=== PATIENT | female | born 1985 | race Caucasian/White ===

== ENCOUNTER 2019-11-02 16:33 | Emergency (ER) | payer OTHER ==
[2019-11-02] MEDS ORDERED: cefTRIAXone 1 GM Vial IM ONE (19:14)
[2019-11-02] MEDS ORDERED: Ondansetron 4 MG Tab.DIS PO ONE (19:16)
--- NOTE | 2019-11-02 19:16 | EDM.PDOC ---
ED HPI GENERAL MEDICAL PROBLEM - General Chief Complaint: Flank Pain Stated Complaint: FLANK PAIN Time Seen by Provider: 11/02/19 19:05 Source of Information: Reports: Patient, RN History Limitations: Reports: Other (no old records) - History of Present Illness INITIAL COMMENTS - FREE TEXT/NARRATIVE: 34 yo female here with flank pain and mild nausea after a couple days of mild dysuria. No fever. PHx of UTI's. Visiting for the week from [facility]. Onset: Gradual Duration: Day(s):, Getting Worse Location: Reports: Back (flank bilat.), Pelvis (bladder) Quality: Reports: Ache (flank), Burning (bladder) Severity: Mild Improves with: Reports: None Worsens with: Reports: Other (time) Context: Reports: Other (See HPI) Associated Symptoms: Reports: Nausea/Vomiting (no vomiting). Denies: Fever/Chills Treatments [employer]: Reports: Other (see below) (none) Bilateral Flank Pain Score (Numeric/FACES): 6 - Related Data Allergies Allergy/AdvReac Type Severity Reaction Status Date / Time No Known Allergies Allergy Verified 11/02/19 18:41 Home Meds: Home Meds Nitrofurantoin Monohyd/M-Cryst [Macrobid 100 mg Capsule] 100 mg PO Q12H #14 capsule 11/02/19 [Rx] Past Medical History - Past Surgical History HEENT Surgical History: Reports: Other (See Below) Other HEENT Surgeries/Procedures: deviated septum surgery Social & Family History - Tobacco Use Smoking Status *Q: Never Smoker - Recreational Drug Use Recreational Drug Use: No ED ROS GENERAL - Review of Systems Review Of Systems: See Below Constitutional: Reports: Malaise. Denies: Fever, Chills HEENT: Reports: No Symptoms Respiratory: Reports: No Symptoms Cardiovascular: Reports: No Symptoms GI/Abdominal: Reports: Nausea. Denies: Diarrhea, Vomiting : Reports: Dysuria, Flank Pain. Denies: Hematuria, Urinary Retention Skin: Reports: No Symptoms ED EXAM, RENAL/ - Physical Exam Exam: See Below Exam Limited By: No Limitations General Appearance: Alert, WD/WN, No Apparent Distress Respiratory/Chest: No Respiratory Distress, Lungs Clear, Normal Breath Sounds, No Accessory Muscle Use Cardiovascular: Regular Rate, Rhythm, No Edema GI/Abdominal: Soft, Non-Tender Back Exam: CVA Tenderness (R) (mild), CVA Tenderness (L) (mild) Extremities: Normal Inspection, Normal Range of Motion, Non-Tender Neurological: Alert, Oriented, CN II-XII Intact, Normal Cognition, No Motor/Sensory Deficits Psychiatric: Normal Affect, Normal Mood Skin Exam: Warm, Dry, Intact, Normal Color, No Rash Course - Vital Signs Last Recorded V/S: Last Vital Signs Temp 36.6 C 11/02/19 18:40 Pulse 80 11/02/19 18:40 Resp 16 11/02/19 18:40 BP 102/76 11/02/19 18:40 Pulse Ox 99 11/02/19 18:40 - Orders/Labs/Meds Orders: Active Orders 24 hr Category Date Time Status Ondansetron [Zofran ODT] Med 11/02/19 19:16 Once 4 mg PO ONETIME ONE Medication Orders Ondansetron HCl (Zofran Odt) 4 mg PO ONETIME ONE Stop: 11/02/19 19:17 Labs: Laboratory Tests 11/02/19 11/02/19 Range/Units 17:05 17:05 Urine Color Yellow (YELLOW) Urine Appearance Cloudy A (CLEAR) Urine pH 6.5 (5.0-8.0) Ur Specific [place] 1.010 (1.008-1.030) Urine Protein 100 H (NEGATIVE) mg/dL Urine Glucose (UA) Negative (NEGATIVE) mg/dL Urine Ketones Negative (NEGATIVE) mg/dL Urine Occult Blood Large H (NEGATIVE) Urine Nitrite Negative (NEGATIVE) Urine Bilirubin Negative (NEGATIVE) Urine Urobilinogen 0.2 (0.2-1.0) EU/dL Ur Leukocyte Esterase Moderate H (NEGATIVE) Urine RBC 5-10 H (0-5) Urine WBC Packed H (0-5) Ur Epithelial Cells Few Amorphous Sediment Not seen Urine Bacteria Many Urine Mucus Rare Urine HCG, Qual Negative Meds: Medications Generic Name Dose Route Start Last Admin Trade Name Freq PRN Reason Stop Dose Admin Ondansetron HCl 4 mg 11/02/19 19:16 Zofran Odt PO 11/02/19 19:17 ONETIME ONE Discontinued Medications Generic Name Dose Route Start Last Admin Trade Name Freq PRN Reason Stop Dose Admin Ceftriaxone Sodium 1 gm 11/02/19 19:14 Rocephin IM 11/02/19 19:15 ONETIME ONE Departure - Departure Time of Disposition: 19:40 Disposition: Home, Self-Care 01 Condition: Fair Clinical Impression: UTI (urinary tract infection) Qualifiers: Urinary tract infection type: site unspecified Hematuria presence: without hematuria Qualified Code(s): N39.0 - Urinary tract infection, site not specified - Discharge Information *PRESCRIPTION DRUG MONITORING PROGRAM REVIEWED*: Not Applicable *COPY OF PRESCRIPTION DRUG MONITORING REPORT IN PATIENT TIBURCIO: Not Applicable Prescriptions: Nitrofurantoin Monohyd/M-Cryst [Macrobid 100 mg Capsule] 100 mg PO Q12H #14 capsule Instructions: Urinary Tract Infection, Adult, [id number] Referrals: PCP,None [Primary Care Provider] - Forms: ED Department Discharge Additional Instructions: Drink ample fluids. Take acetaminophen as needed for pain or fever control. Take MacroBid every 12 hrs until gone starting tomorrow after 7 pm. Return if worse. A culture has been set up and will be available in 2-3 days. Sepsis Event Note (ED) - Evaluation Sepsis Screening Result: No Definite Risk - Focused Exam Vital Signs: Vital Signs Temp Pulse Resp BP Pulse Ox 11/02/19 18:40 36.6 C 80 16 102/76 99 11/02/19 18:36 36.6 C 80 16 102/76 99 - My Orders Last 24 Hours: My Active Orders 11/02/19 19:16 Ondansetron [Zofran ODT] 4 mg PO ONETIME ONE - Assessment/Plan Last 24 Hours: My Active Orders 11/02/19 19:16 Ondansetron [Zofran ODT] 4 mg PO ONETIME ONE
== END 2019-11-02 20:14 | disposition home or self-care (01) ==
LOC: JP.ED 16:33
DX: N39.0 Urinary tract infection, site not specified (principal)
CPT/HCPCS: 36415; 81001; 81025; 82565; 99284